=== PATIENT | female | born 1940 | race Caucasian/White ===

== ENCOUNTER → 2017-02-07 | Day surgery (SDC) | payer OTHER ==
[~2017-02-07] MED LIST: ACETAMINOPHEN PO; ADVAIR 1001 DISK W/D PO; ADVAIR INH; ALBUTEROL17 GM INH; ALLERGY10 M2 PO; ALPRAZOLAM; ALPRAZOLAM ODT1 MG PO; ALPRAZOLAM PO; ALPRAZOLAM1 MG PO; AMLODIPINE BESYL5 MG PO; ANTIFUNGAL PO; ASPIRIN PO; ASPIRIN81 M1 PO; ASPIRIN81 M2 PO; ATENOLOL; ATROVENT HFA12.9 GM INH; ATROVENT NASAL15 ML; BENICAR; BENICAR HCT 20-1 TA1 PO; BENICAR PO; BONIVA150 MG PO; CALCIUM CITRAT1 EA10 PO; CALTRATE PLUS T1 TAB; CALTRATE PLUS T1 TAB PO; CARAFATE; CARAFATE PO; CARAFATE1 G PO; CARAFATE1 GM PO; CELEBREX100 M1 PO; CELEBREX50 MG PO; CELEXA20 MG PO; CITRACAL + D CA1 TA1 PO; CITRACAL200 M1 PO; CLARITIN10 M3 PO; COLCRYS0.6 MG PO; COMBIVENT INH14.7 GM INH; COUMADIN3 MG PO; COZAAR100 MG PO; COZAAR25 MG PO; CRESTOR; CRESTOR PO; CYMBALTA PO; DESYREL100 MG PO; DETROL LA; DETROL LA PO; DILAUDID PO; DILAUDID4 M1 PO; DILAUDID4 MG DOB; DILAUDID4 MG PO; DULOXETINE HCL60 MG PO; ENBREL50 MG/M1 SQ; EVISTA60 MG; FENTANYL; FOLIC ACID1 MG PO; FUROSEMIDE40 MG PO; GABAPENTIN600 MG PO; IMDUR-ER30 M1 PO; IMDUR-ER60 M2 PO; K-DUR10 MEQ PO; KCL PO; KEFLEX500 M1 PO; KLONOPIN; KLONOPIN PO; KLOR-CON SPRIN10 MEQ PO; KRISTALOSE; LASIX PO; LEVAQUIN PO; LEVOTHROID200 MCG PO; LEVOXYL175 MCG PO; LEVOXYL200 MC1 PO; LEXAPRO; LIPITOR PO; LODINE PO; LOPRESSOR PO; LOSARTAN POTASS25 MG PO; LOVENOX SUBQ; LYRICA PO; MEDI-MECLIZINE25 M1 PO; METAMUCIL SMOOT1 PKT PO; METHOTREXATE2.5 MG PO; MILK OF MAGNESIA PO; NEURONTIN; NEURONTIN PO; NEURONTIN300 MG; NEXIUM PO; NITROGYLCERIN SUBLINGUAL; NITROQUICK0.4 MG SL; NON-ASPIRIN PA325 M1 PO; OXYCONTIN; PAIN PUMP; PANTOPRAZOLE SO40 MG PO; PERCOCET 5-3251 TAB PO; PERCOCET5/325 PO; PLAQUENIL200 MG; PLAQUENIL200 MG PO; PLAVIX PO; PREDNISONE PO; RANITIDINE HCL150 M1 PO; RECLAST 55 MG/100 M INJ; RECLAST 55 MG/100 M IV; REMICAID; REQUIP1 MG PO; REQUIP2 MG PO; RESTASIS32 EA OP; RESTASIS32 EA OU; ROPINIROLE HCL2 MG PO; ROPINIROLE HCL4 MG PO; SAVELLA PO; SAVELLA50 MG PO; SEROQUEL PO; SEROQUEL50 MG DOB; SYNTHROID; SYNTHROID PO; SYSTANE 0.3-0.415 ML OP; SYSTANE BALANCE10 ML OP; SYSTANE BALANCE10 ML OU; THERA TEARS32 EA OP; TRAZODONE; TRAZODONE HCL100 MG PO; TRAZODONE PO; TYLOX 5/500 CAP1 CAP PO; VICODIN PO; VIT B PO; VIT PO; VITAMIN B 6; VITAMIN B 6 PO; VITAMIN B122500 MCG PO; VITAMIN B6; VITAMIN D 4001 UDTAB; VITAMIN D 4001 UDTAB PO; VITAMIN D PO; VITAMIN D31000 UNIT PO; WELLBUTRIN; XELJANZ5 MG PO; ZANTAC150 M1 PO; ZOLEDRONIC IV; ZYRTEC10 M2 PO; [UNRECOGNIZED DRUG - OTHER]
--- NOTE | ~2017-02-07 | OR ---
Unit #: [id number] #: [id number] Patient: TIFFANIE SHAFFER [id number] [address] [address] [id number] O MR#: [id number] NAME: TIFFANIE SHAFFER. ROOM: Date of Procedure: 02/07/2017 Admission Date: 02/07/2017 Surgeon: Koko Gracia M.D. : 1940 Attending Physician: Koko Gracia M.D. Primary Care Physician: Avi José D.O. OPERATIVE REPORT PREOPERATIVE DIAGNOSES 1. Postlumbar fusion. 2. Degenerative disk disease. 3. Spinal stenosis. 4. Spondylolisthesis. 5. Back pain. 6. Radiculopathy. POSTOPERATIVE DIAGNOSES 1. Postlumbar fusion. 2. Degenerative disk disease. 3. Spinal stenosis. 4. Spondylolisthesis. 5. Back pain. 6. Radiculopathy. PROCEDURE PERFORMED Lumbar epidural steroid injection with intravenous sedation and fluoroscopic guidance for needle localization. INDICATIONS FOR PROCEDURE The patient is a 76-year-old female, who had return of back and bilateral lower extremity pains associated with previously mentioned diagnosis. She was treated medically with p.r.n. epidural steroid injections, last which was done singly in 01/2016. This gave her 70% improvement until September. The pain has been getting much more significant over the last 4 months. We are going to proceed with a repeat injection at this point. DESCRIPTION OF PROCEDURE The patient was placed in the seated position. Standard monitors were applied. 4 mg of Versed were given for sedation and anxiolysis, which were adequate. Vital signs remained stable. Sterile prep and drape then of the lumbar area was performed. The skin then at the L5 level was localized with 1% lidocaine. An 18-gauge T2 [employer] needle was then advanced via right paramedian approach with fluoroscopic guidance in toward the epidural space. After confirming proper needle positioning with fluoroscopy and radiographic contrast, a dose of 80 mg of Depo-Medrol and 6 mL of 0.5% lidocaine were deposited. The patient tolerated the procedure otherwise well and was discharged to the recovery room in stable condition. Unit #: [id number] #: [id number] Patient: TIFFANIE SHAFFER Dictated by... Bradford Reed/akanksha TD: 02/07/2017 23:55 JOB #: [id number] OPERATIVE REPORT X Koko Gracia MD X PROCEDURE OPERATIVE NOTE
== END | disposition home or self-care (01) ==
LOC: CCSC 09:29
DX: M51.16 Intervertebral disc disorders with radiculopathy, lumbar region (principal); M48.06 Spinal stenosis, lumbar region; M43.16 Spondylolisthesis, lumbar region; Z98.1 Arthrodesis status
CPT/HCPCS: J1040; J2250

== ENCOUNTER → 2017-05-17 | Outpatient (CLI) | payer OTHER ==
--- NOTE | ~2017-05-17 | BD1 ---
[facility] A Service of [facility] RADIOLOGY TEXT RESULTS PATIENT: TIFFANIE SHAFFER LOCATION: [facility] : 36 UNIT #: [id number] AGE: [address]: AVI SANTOS DO SEX: F ORDER DR: [id number] [address] [address] [id number] O MR#: [id number] Acc #: [id number] NAME: TIFFANIE SHAFFER : 1940 SEX: F STUDY DATE/TIME: 05/17/2017 10:03 UNIT: [facility] ROOM: STUDY DESCRIPTION: Dexa Bone Dens 1+ Site Attending Physician: Avi Santos D.O. Referring Physician: Avi Santos D.O. Ordering Physician: Avi Santos D.O. Primary Care Physician: Avi Santos D.O. MEDICAL IMAGING REPORT This report is preliminary unless electronic signature is present. EXAM DXA scan 05/17/2017. HISTORY Status post menopause with no hormone replacement therapy. Osteopenia. Rheumatoid arthritis. Thyroid medication Synthroid use. Fracture of leg and ankle in last 10 years. Family history of osteoporosis in mother and daughter. FINDINGS Bone mineral density in the distal left forearm radius is 0.589 g/cm2, which is 3.4 standard deviations below the mean when compared to the young adult reference population, which is characteristic of osteoporosis. This is 0.8 standard deviations below the mean when compared to the age-matched population. Compared 01/20/2015 there has been a decrease in bone mineral density in the left forearm of 7.3%. IMPRESSION Bone mineral density in the left forearm characteristic of osteoporosis. Compared with 01/20/2015 there has been a decrease in bone mineral density in the left forearm. Dictated by... Josiah Burns M.D. THIS IS AN ELECTRONICALLY VERIFIED REPORT Josiah Burns M.D. at 05/18/2017 6:17 AM KRT/gz TD: 05/17/2017 14:54 JOB #: [id number] [facility] A Service of [facility] RADIOLOGY TEXT RESULTS PATIENT: TIFFANIE SHAFFER LOCATION: [facility] : 38 UNIT #: [id number] AGE: [address]: AVI SANTOS DO SEX: F ORDER DR: MEDICAL IMAGING REPORT Page 1 of 1
== END | disposition home or self-care (01) ==
LOC: SRAD 05-16 10:30
DX: M81.0 Age-related osteoporosis without current pathological fracture (principal)
CPT/HCPCS: 77080

== ENCOUNTER → 2017-05-26 | Outpatient (CLI) | payer OTHER ==
--- NOTE | ~2017-05-26 | CT134 ---
[facility] A Service of [facility] & [facility] RADIOLOGY TEXT RESULTS PATIENT: TIFFANIE SHAFFER LOCATION: [facility] : 36 UNIT #: [id number] AGE: [address]: Alvin Page MD SEX: F ORDER DR: [id number] [facility] [address] [facility]. [place], [place] [address] [id number] O MR#: [id number] Acc #: [id number] NAME: TIFFANIE SHAFFER : 1940 SEX: F STUDY DATE/TIME: 05/26/2017 12:51 UNIT: [facility] ROOM: STUDY DESCRIPTION: CT Guide Attending Physician: Alvin Page M.D. Referring Physician: Alvin Page M.D. Ordering Physician: Alvin Page M.D. Primary Care Physician: Avi José D.O. MEDICAL IMAGING REPORT This report is preliminary unless electronic signature is present EXAM Fluoroscopically guided left SI joint injection HISTORY Left SI joint pain TECHNIQUE This CT exam was performed with one or more of the following radiation dose reduction techniques: automatic exposure control, adjustment of mA and/or kV according to patient size, and iterative reconstruction. PROCEDURE The risks, benefits, and alternatives to the procedure were explained to the patient, and signed, informed consent was obtained and prone on the CT scanner gantry. Preliminary CT scan was performed through the region of interest. An appropriate site overlying the patient's left SI joint was selected. The overlying skin was marked. Patient was prepped and draped in usual sterile fashion. Time-out was performed as per protocol. Skin and subcutaneous tissues were anesthetized with buffered lidocaine and a 22-gauge spinal needle was advanced towards the joint space. Final CT scan showed appropriate trajectory of the needle which was then advanced more medially and inferiorly and then advanced into the joint space. I then instilled a combination of lidocaine, bupivacaine and Depo-Medrol. Patient tolerated the procedure well and there were no immediate complications. IMPRESSION Technically successful CT guided left SI joint injection as noted above. CT was used during the procedure and permanent images were saved. Dictated by... Erma Ramos M.D. [facility] A Service of [facility] RADIOLOGY TEXT RESULTS PATIENT: TIFFANIE SHAFFER LOCATION: [facility] : 36 UNIT #: [id number] AGE: [address]: Alvin Page MD SEX: F ORDER DR: THIS IS AN ELECTRONICALLY VERIFIED REPORT Erma Ramos M.D. at 06/01/2017 8:10 AM AFF/to TD: 05/29/2017 16:29 JOB #: [id number] MEDICAL IMAGING REPORT Page 1 of 1 COPY
== END | disposition home or self-care (01) ==
LOC: CIVR 10:49
DX: M53.3 Sacrococcygeal disorders, not elsewhere classified (principal)
CPT/HCPCS: 77002; 77012; J1030

== ENCOUNTER → 2017-07-11 | Day surgery (SDC) | payer OTHER ==
--- NOTE | ~2017-07-11 | OR ---
Unit #: [id number] #: [id number] Patient: TIFFANIE SHAFFER [id number] [address] [address] [id number] O MR#: [id number] NAME: TIFFANIE SHAFFER ROOM: Date of Procedure: 07/11/2017 Admission Date: 07/11/2017 Surgeon: Koko Gracia M.D. : 1940 Attending Physician: Koko Gracia M.D. Primary Care Physician: Avi José D.O. OPERATIVE REPORT PREOPERATIVE DIAGNOSES Back pain, radiculopathy, spinal stenosis, post lumbar fusion, spondylolisthesis, pseudoarthrosis. POSTOPERATIVE DIAGNOSES Back pain, radiculopathy, spinal stenosis, post lumbar fusion, spondylolisthesis, pseudoarthrosis. PROCEDURE PERFORMED Lumbar epidural steroid injection with intravenous sedation and fluoroscopic guidance for needle localization. INDICATIONS FOR PROCEDURE The patient is a 76-year-old female with previously mentioned diagnosis. She is not a surgical candidate. She has severe pathology. She is managed with the intrathecal pump as needed, p.r.n. epidural steroid injections. This was about 5 months ago. Prior to that, she had done well for about a year with a single injection. Based on history, pathology, symptomatology, and treatment options, plan is to repeat epidural steroid injection today. DESCRIPTION OF PROCEDURE The patient was placed in a seated position. Standard monitors were applied. 4 mg of Versed were given for sedation and anxiolysis, which were adequate. Vital signs remained stable. Sterile prep and drape then of the lumbar area was performed. The skin then to the right of midline at the L5-S1 level was localized with 1% lidocaine. An 18-gauge [employer] needle was then advanced via loss of resistance technique and right paramedian approach in toward the epidural space. After confirming proper positioning with fluoroscopy and radiographic contrast, 80 mg of Depo-Medrol and 4 mL of 0.125% bupivacaine were deposited. The patient tolerated the procedure otherwise well and was discharged to the recovery room in stable condition. Dictated by... Koko Gracia M.D. LHP/modl Unit #: [id number] #: [id number] Patient: TIFFANIE SHAFFER TD: 07/11/2017 10:44 JOB #: [id number] OPERATIVE REPORT Page 1 of 1 X Koko Gracia MD X PROCEDURE OPERATIVE NOTE
== END | disposition home or self-care (01) ==
LOC: CCSC 07:53
DX: M47.26 Other spondylosis with radiculopathy, lumbar region (principal); M43.16 Spondylolisthesis, lumbar region; M48.06 Spinal stenosis, lumbar region; Z98.1 Arthrodesis status; Z79.899 Other long term (current) drug therapy
CPT/HCPCS: J1040; J2250